=== PATIENT | male | born 1965 | race Caucasian/White ===

== ENCOUNTER 2018-04-13 16:48 | Emergency (ER) | payer MEDICAID ==
[~2018-04-13] VITALS: Ht 165.1 cm; Wt 82.6 kg
[2018-04-13 16:51] VITALS: Ht 165.1 cm; Wt 82.6 kg
[2018-04-13 17:45] LABS: BASOPHIL % 0.4 % (0-2); PLATELET COUNT 178 x10^3mcL (130-400); RED CELL DISTRIBUTION WIDTH 12.8 % (11.5-14.5)
[2018-04-13 17:57] LABS: CALCIUM 9.1 mg/dL (8.5-10.1); CHLORIDE SERUM 100 mmol/L (98-107); CREATININE SERUM 0.9 mg/dL (0.7-1.3); GFR1 > 60 mL/min; GLUCOSE SERUM 295 mg/dL (74-106); POTASSIUM SERUM 4.1 mmol/L (3.5-5.1); SODIUM SERUM 136 mmol/L (136-145)
[2018-04-13 18:03] LABS: ALBUMIN 3.9 g/dL (3.4-5.0); ALKALINE PHOSPHATASE 82 U/L (46-116); ALT/SGPT 25 U/L (16-63); AST/SGOT 17 U/L (15-37); BILIRUBIN TOTAL 0.69 mg/dL (0.20-1.00); LIPASE 150 IU/L (73-393); TOTAL PROTEIN, SERUM 7.5 g/dL (6.4-8.2)
[2018-04-13 18:07] LABS: FREE T4 1.09 ng/dL (0.76-1.46); FREE THYROXINE INDEX 2.8 ug/dL (1.4-4.5); T4(THYROXINE) 8.5 ug/dL (4.7-13.3)
[2018-04-13 18:09] VITALS: BP 145/80
[2018-04-13 18:14] LABS: T3 TOTAL 1.3 ng/mL
[2018-04-13 18:18] LABS: CHOLESTEROL 226 mg/dL (<200); CHOLESTEROL/HDL RATIO 7.3; HDL CHOLESTEROL 31 mg/dL (40-60); TRIGLYCERIDES 245 mg/dL (<150)
== END 2018-04-13 18:56 | disposition home or self-care (01) ==
LOC: ED 16:48
PROVIDERS: Specialist
DX: M54.12 Radiculopathy, cervical region (principal); E11.9 Type 2 diabetes mellitus without complications; E78.00 Pure hypercholesterolemia, unspecified
CPT/HCPCS: 36415; 83880; 84439; J1885; J3010; Q0092

== ENCOUNTER 2019-05-29 08:21 | Emergency (ER) | payer BC, OTHER ==
[~2019-05-29] VITALS: Ht 172.7 cm; Wt 80.3 kg
[2019-05-29 08:24] VITALS: Ht 172.7 cm; Wt 80.3 kg
[2019-05-29 08:55] LABS: BASOPHIL % 0.6 % (0-2); PLATELET COUNT 196 x10^3mcL (130-400); RED CELL DISTRIBUTION WIDTH 12.7 % (11.5-14.5)
[2019-05-29 08:59] LABS: CALCIUM 8.5 mg/dL (8.5-10.1); CARBON DIOXIDE 27.8 mmol/L (21-32); CHLORIDE SERUM 104 mmol/L (98-107); CREATININE SERUM 0.8 mg/dL (0.7-1.3); GFR1 > 60 mL/min; GLUCOSE SERUM 208 mg/dL (74-106); POTASSIUM SERUM 4.4 mmol/L (3.5-5.1); SODIUM SERUM 141 mmol/L (136-145)
[2019-05-29 09:05] LABS: ALBUMIN 3.9 g/dL (3.4-5.0); ALKALINE PHOSPHATASE 80 U/L (46-116); ALT/SGPT 23 U/L (16-63); AST/SGOT 14 U/L (15-37); TOTAL PROTEIN, SERUM 7.7 g/dL (6.4-8.2)
[2019-05-29] MEDS ORDERED: METFORMIN HYDR500 M1 (10:05)
[2019-05-29] MEDS ORDERED: GLIPIZIDE2.5 M1 (10:06)
[2019-05-29 12:22] LABS: CHOLESTEROL/HDL RATIO 6.1
[2019-05-29 12:37] VITALS: BP 135/82
== END 2019-05-29 13:16 | disposition home or self-care (01) ==
LOC: ED 08:21
PROVIDERS: Emergency Medicine
DX: R07.89 Other chest pain (principal); E78.00 Pure hypercholesterolemia, unspecified; M25.512 Pain in left shoulder; E11.9 Type 2 diabetes mellitus without complications
CPT/HCPCS: J1885; Q0092

== ENCOUNTER 2020-04-03 13:22 | Inpatient (IN) | payer BC ==
[~2020-04-03] VITALS: Ht 170.2 cm; Wt 79.8 kg
[~2020-04-03 13:22] MED LIST: GLIPIZIDE2.5 M1; METFORMIN HYDR500 M1
[2020-04-03 13:28] VITALS: Ht 170.2 cm; Wt 79.8 kg
[2020-04-03 14:07] LABS: UA SPECIFIC GRAVITY >=1.030 (1.005-1.035); microscopic required? YES; urine erythrocyte 3+ (NEGATIVE)
[2020-04-03 14:26] LABS: CALCIUM 8.9 mg/dL (8.5-10.1); CARBON DIOXIDE 24.6 mmol/L (21-32); CHLORIDE SERUM 100 mmol/L (98-107); CREATININE SERUM 1.1 mg/dL (0.7-1.3); GFR1 > 60 mL/min; GLUCOSE SERUM 268 mg/dL (74-106); POTASSIUM SERUM 4.8 mmol/L (3.5-5.1); SODIUM SERUM 135 mmol/L (136-145)
[2020-04-03 14:30] LABS: ALKALINE PHOSPHATASE 84 U/L (46-116); ALT/SGPT 22 U/L (16-63); AST/SGOT 15 U/L (15-37)
[2020-04-03 14:32] LABS: BASOPHIL % 0.4 % (0-2); PLATELET COUNT 179 x10^3mcL (130-400); RED CELL DISTRIBUTION WIDTH 13.4 % (11.5-14.5)
[2020-04-03 14:44] LABS: BILIRUBIN TOTAL 0.8 mg/dL (0.20-1.00); TOTAL PROTEIN, SERUM 7.7 g/dL (6.4-8.2)
[2020-04-03 16:44] LABS: PHOSPHOROUS 2.2 mg/dL (2.5-4.9)
[2020-04-03 16:46] LABS: CHOLESTEROL/HDL RATIO 5.8
[2020-04-03 16:52] LABS: MAGNESIUM 1.7 mg/dL (1.8-2.4)
[2020-04-03 22:47] VITALS: BP 136/83
[2020-04-04 05:52] VITALS: BP 116/73
[2020-04-04 07:41] LABS: BASOPHIL % 0.4 % (0-2); PLATELET COUNT 157 x10^3mcL (130-400)
[2020-04-04 08:00] LABS: CALCIUM 8.1 mg/dL (8.5-10.1); CARBON DIOXIDE 22.9 mmol/L (21-32); CHLORIDE SERUM 105 mmol/L (98-107); CREATININE SERUM 1.1 mg/dL (0.7-1.3); GFR1 > 60 mL/min; GLUCOSE SERUM 131 mg/dL (74-106); MAGNESIUM 1.8 mg/dL (1.8-2.4); PHOSPHOROUS 2.5 mg/dL (2.5-4.9); POTASSIUM SERUM 4.3 mmol/L (3.5-5.1); SODIUM SERUM 138 mmol/L (136-145)
[2020-04-04 09:07] VITALS: BP 127/82
[2020-04-04 12:50] VITALS: BP 141/89
[2020-04-04 16:55] LABS: BASOPHIL % 0.1 % (0-2); PLATELET COUNT 185 x10^3mcL (130-400); RED CELL DISTRIBUTION WIDTH 13.2 % (11.5-14.5)
[2020-04-04 17:12] LABS: CALCIUM 8.1 mg/dL (8.5-10.1); CHLORIDE SERUM 101 mmol/L (98-107); GFR1 > 60 mL/min; GLUCOSE SERUM 321 mg/dL (74-106); POTASSIUM SERUM 4.5 mmol/L (3.5-5.1); SODIUM SERUM 136 mmol/L (136-145)
[2020-04-04 18:06] VITALS: BP 148/92
== END 2020-04-04 19:07 | disposition home or self-care (01) | DRG 660 ==
LOC: ED 13:22 → MU 15:58 → DU 15:58 → MU 21:07 → DU 04-04 05:50
PROVIDERS: Emergency Medicine; Family Medicine; Urology; ADMIT Internal Medicine; ATTEND Internal Medicine
PROC: 0T768DZ Dilation of Right Ureter with Intraluminal Device, Via Natural or Artificial Opening Endoscopic (ICD-10-PCS; 2020-04-04)
PROC: 0TF68ZZ Fragmentation in Right Ureter, Via Natural or Artificial Opening Endoscopic (ICD-10-PCS; 2020-04-04)
PROC: BT1D1ZZ Fluoroscopy of Right Kidney, Ureter and Bladder using Low Osmolar Contrast (ICD-10-PCS; principal; 2020-04-04 10:30)
DX: N13.2 Hydronephrosis with renal and ureteral calculous obstruction (principal); G81.90 Hemiplegia, unspecified affecting unspecified side; E78.00 Pure hypercholesterolemia, unspecified; E78.5 Hyperlipidemia, unspecified; E11.65 Type 2 diabetes mellitus with hyperglycemia; Z79.899 Other long term (current) drug therapy; Z79.84 Long term (current) use of oral hypoglycemic drugs
CPT/HCPCS: 82962; 94150; C1769; C2625; G0378; J0690; J1815; J1885; J2250; J3010; J7030; Q0092; Q9967

== ENCOUNTER 2020-08-04 15:58 | Emergency (ER) | payer BC ==
[~2020-08-04] VITALS: Ht 157.5 cm; Wt 77.6 kg
[2020-08-04 16:03] VITALS: Ht 157.5 cm; Wt 77.6 kg
[2020-08-04 18:28] VITALS: BP 146/78
== END 2020-08-04 18:28 | disposition home or self-care (01) ==
LOC: ED 15:58
DX: U07.1 COVID-19 (principal); J12.89 Other viral pneumonia; E11.9 Type 2 diabetes mellitus without complications; E78.00 Pure hypercholesterolemia, unspecified
CPT/HCPCS: 82962; U0003